=== PATIENT | female | born 1965 ===

== ENCOUNTER 2021-02-03 12:07 | Emergency (ER) | payer SELFPAY ==
[2021-02-03 12:45] VITALS: BP 92/53; PULSE 95; RESP 18; TEMP 98.6
--- NOTE | 2021-02-03 13:30 | ED ---
Recheck HPI - General Chief Complaint: Recheck/Abnormal Lab/Rx Stated Complaint: Covid test Time Seen by Provider: 02/03/21 13:27 Source: patient, family Mode of arrival: ambulatory Limitations: no limitations - History of Present Illness Initial Comments: Patient presents to the emergency department today for COVID-19 testing in order to cross border into [place]. Denies any current symptoms or recent exposures. Patient denies need for further medical screening or examination. - Related Data Allergies Allergy/AdvReac Type Severity Reaction Status Date / Time No Known Allergies Allergy Verified 02/03/21 12:45 Review of Systems ROS Statement: Those systems with pertinent positive or pertinent negative responses have been documented in the HPI. ROS Other: All systems not noted in ROS Statement are negative. Past Medical History Past Medical History: No Reported History History of Any Multi-Drug Resistant Organisms: None Reported Past Surgical History: No Surgical Hx Reported Past Psychological History: No Psychological Hx Reported Smoking Status: Never smoker Past Alcohol Use History: None Reported Past Drug Use History: None Reported General Exam Limitations: no limitations General appearance: alert, in no apparent distress Neurological exam: Present: alert, oriented X3 Skin exam: Present: warm, dry, normal color. Absent: rash Course Vital Signs 02/03/21 12:41 Temperature 98.6 F Pulse Rate 95 Respiratory 18 Rate Blood Pressure 92/53 O2 Sat by Pulse 98 Oximetry Medical Decision Making - Medical Decision Making Patient presented for COVID-19 testing in order to cross border into [place]. Did not have any symptoms. Declined any need for further exam or screening. Test results were negative. Patient was given copy of result and discharged. My attending is Dr. Adler. - Lab Data Lab Results 02/03/21 Range/Units 12:46 Coronavirus (PCR) Not Detected (Not Detectd) Disposition Clinical Impression: Encounter for laboratory testing for COVID-19 virus Disposition: HOME SELF-CARE Condition: Good Instructions (If sedation given, give patient instructions): Coronavirus Disease 2019 (COVID-19) Is patient prescribed a controlled substance at d/c from ED?: No Referrals: None,Stated [Primary Care Provider] - 1-2 days Time of Disposition: 13:30
== END 2021-02-03 13:50 | disposition home or self-care (01) ==
LOC: EC 12:07
DX: Z20.822 Contact with and (suspected) exposure to COVID-19 (principal)
CPT/HCPCS: 87635; 99282